=== PATIENT | female | born 1985 | race Caucasian/White ===

== ENCOUNTER 2020-03-21 18:12 | Emergency (ER) | payer SELFPAY ==
--- NOTE | 2020-03-21 20:26 | RAD REPORT ---
EXAM DESCRIPTION: US - Extremity Venous Uni Ltd - 03/21/2020 8:18 pm CLINICAL HISTORY: Left arm pain and swelling COMPARISON: None. TECHNIQUE: Real-time sonographic evaluation of the left upper extremity deep venous systems was perf ormed. FINDINGS: Normal compressibility, flow augmentation, phasic flow and spontaneous flow are identified in the left upper extremity deep venous system. No intraluminal filling defects seen. Internal jugul ar and subclavian veins are normal as well. Superficial venous thrombosis is identified with dilated and thrombosed vein in the mid forearm. Mariel cent tissues are edematous. This is corresponding to an area of soft tissue swelling evident on physi dante exam. IMPRESSION: No DVT in the left upper extremity. Superficial venous thrombosis in the mid left forearm.
--- NOTE | 2020-03-21 20:32 | EDPHYS ---
Physician Documentation [facility] Name: Venice Saldivar Age: 34 yrs Sex: Female : 1985 Arrival Date: 03/21/2020 Time: 18:15 Bed 24 Private MD: ED Physician Dontrell Pradhan HPI: 03/21 20:51 This 34 yrs old Female presents to ER via Ambulatory with complaints of Skin kb Problem. 20:54 The patient or guardian complains of pain, tenderness. The complaints affect the dorsal kb aspect of left forearm. Context: The problem was sustained at home, resulted from unknown cause. Onset: The symptoms/episode began/occurred last week. Treatment prior to arrival includes: no previous treatment. Modifying factors: The symptoms are alleviated by nothing. the symptoms are aggravated by nothing. Associated signs and symptoms: Pertinent positives: erythema, pain, swelling. Severity of symptoms: At their worst the symptoms were moderate, in the emergency department the symptoms are unchanged. The patient has not experienced similar symptoms in the past. The patient has not recently seen a physician. 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 - Social history:: Smoking status: . ROS: 20:53 Constitutional: Negative for fever, chills, and weight loss, Cardiovascular: Negative kb for chest pain, palpitations, and edema, Respiratory: Negative for shortness of breath, cough, wheezing, and pleuritic chest pain, Abdomen/GI: Negative for abdominal pain, nausea, vomiting, diarrhea, and constipation, MS/Extremity: Negative for injury and deformity, Neuro: Negative for headache, weakness, numbness, tingling, and seizure. 20:53 Skin: Positive for erythema, swelling, of the dorsal aspect of left forearm. Exam: 20:51 Constitutional: This is a well developed, well nourished patient who is awake, alert, kb and in no acute distress. Head/Face: Normocephalic, atraumatic. Chest/axilla: Normal chest wall appearance and motion. Nontender with no deformity. No lesions are appreciated. Cardiovascular: Regular rate and rhythm with a normal S1 and S2. No gallops, murmurs, or rubs. Normal PMI, no JVD. No pulse deficits. Respiratory: Lungs have equal breath sounds bilaterally, clear to auscultation and percussion. No rales, rhonchi or wheezes noted. No increased work of breathing, no retractions or nasal flaring. Abdomen/GI: Soft, non-tender, with normal bowel sounds. No distension or tympany. No guarding or rebound. No evidence of tenderness throughout. MS/ Extremity: Pulses equal, no cyanosis. Neurovascular intact. Full, normal range of motion. Neuro: Awake and alert, GCS 15, oriented to person, place, time, and situation. Cranial nerves II-XII grossly intact. Motor strength 5/5 in all extremities. Sensory grossly intact. Cerebellar exam normal. Normal gait. 20:51 Skin: Appearance: normal except for affected area, Color: erythematous, swelling, noted on the dorsal aspect of left forearm, that are mild. Vital Signs: 18:19 BP 122 / 83; Pulse 82; Resp 16; Temp 97.6; Pulse Ox 100% on R/A; Weight 129.27 kg; iw Height 5 ft. 8 in. (172.72 cm); Pain 8/10; 20:20 BP 120 / 77; Pulse 88; Resp 16; Pulse Ox 100% on R/A; sg 18:19 Body Mass Index 43.33 (129.27 kg, 172.72 cm) iw MDM: 18:19 Patient medically screened. kb 19:29 Data reviewed: vital signs, nurses notes. Data interpreted: Pulse oximetry: on room air kb is 100 %. Interpretation: normal. Counseling: I had a detailed discussion with the patient and/or guardian regarding: the historical points, exam findings, and any diagnostic results supporting the discharge/admit diagnosis, radiology results, the need for outpatient follow up, a family practitioner, to return to the emergency department if symptoms worsen or persist or if there are any questions or concerns that arise at home. 03/21 18:19 Order name: Extremity Venous Unilateral Ltd; Complete Time: 20:27 kb Administered Medications: No medications were administered Disposition: 03/22 06:32 Co-signature as Attending Physician, Dontrell Pradhan MD I agree with the assessment and kdr plan of care. Disposition: 03/21/20 20:31 Discharged to Home. Impression: Superficial Venous Thrombosis-mid left forearm. - Condition is Stable. - Medication Reconciliation Form, Thank You Letter, Antibiotic Education, Prescription Opioid Use form. - Follow up: Emergency Department; When: As needed; Reason: Worsening of condition. Follow up: Private Physician; When: 2 - 3 days; Reason: Recheck today's complaints, Continuance of care, Re-evaluation by your physician. - Notes: Hot, moist compresses Signatures: Dispatcher [employer] EDMS Crystal Birmingham, VICENTA-C ABRASIVE GRADER-Derrick Giordano, JENN RN Dontrell Baird MD MD kdr Rabia Jaimes RN RN iw Corrections: (The following items were deleted from the chart) 03/21 20:41 20:31 03/21/2020 20:31 Discharged to Home. Impression: Superficial Venous sg Thrombosis-mid left forearm. Condition is Stable. Forms are Medication Reconciliation Form, Thank You Letter, Antibiotic Education, Prescription Opioid Use. Follow up: Emergency Department; When: As needed; Reason: Worsening of condition. Follow up: Private Physician; When: 2 - 3 days; Reason: Recheck today's complaints, Continuance of care, Re-evaluation by your physician. kb
--- NOTE | 2020-03-21 20:32 | ER ---
Nurse's Notes [facility] Name: Venice Saldivar Age: 34 yrs Sex: Female : 1985 Arrival Date: 03/21/2020 Time: 18:15 Bed 24 Private MD: Diagnosis: Superficial Venous Thrombosis-mid left forearm Presentation: 03/21 18:16 Chief complaint: Patient states: last had a red jacki on her left forearm and iw the pain is getting worse, the redness is intermittent , can feel a knot underneath. Coronavirus screen: At this time, the client does not indicate any symptoms associated with coronavirus-19. Ebola Screen: Patient negative for fever greater than or equal to 101.5 degrees Fahrenheit, and additional compatible Ebola Virus Disease symptoms Patient denies exposure to infectious person. Patient denies travel to an Ebola-affected area in the 21 days before illness onset. No symptoms or risks identified at this time. Initial Sepsis Screen: Does the patient meet any 2 criteria? No. Patient's initial sepsis screen is negative. Does the patient have a suspected source of infection? No. Patient's initial sepsis screen is negative. Risk Assessment: Do you want to hurt yourself or someone else? Patient reports no desire to harm self or others. Onset of symptoms was February 2020. 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 - Social history:: Smoking status: . Screenin:39 Abuse screen: Denies threats or abuse. Denies injuries from another. Nutritional iw screening: No deficits noted. Tuberculosis screening: No symptoms or risk factors identified. Fall Risk None identified. Assessment: 18:20 General: Appears in no apparent distress. comfortable, Behavior is calm, cooperative. iw Pain: Complains of pain in dorsal aspect of left forearm. Neuro: Level of Consciousness is awake, alert, obeys commands, Oriented to person, place, time, situation, Moves all extremities. Full function. Cardiovascular: Capillary refill < 3 seconds in bilateral fingers Patient's skin is warm and dry. Respiratory: Respiratory effort is even, unlabored, Respiratory pattern is regular, symmetrical. GI: No signs and/or symptoms were reported involving the gastrointestinal system. Derm: Skin is intact, is healthy with good turgor. Musculoskeletal: Range of motion: intact in all extremities. Vital Signs: 18:19 BP 122 / 83; Pulse 82; Resp 16; Temp 97.6; Pulse Ox 100% on R/A; Weight 129.27 kg; iw Height 5 ft. 8 in. (172.72 cm); Pain 8/10; 20:20 BP 120 / 77; Pulse 88; Resp 16; Pulse Ox 100% on R/A; sg 18:19 Body Mass Index 43.33 (129.27 kg, 172.72 cm) iw ED Course: 18:15 Patient arrived in ED. rg4 18:15 Crystal Birmingham FNP-C is [facility]. kb 18:15 Dontrell Pradhan MD is Attending Physician. kb 18:18 Triage completed. iw 18:19 Arm band placed on. iw 18:20 Patient has correct armband on for positive identification. Bed in low position. Call sg light in reach. Pulse ox on. NIBP on. 18:39 No provider procedures requiring assistance completed. Patient did not have IV access iw during this emergency room visit. 19:29 Patient taken to ultrasound. via wheelchair. is 20:11 Ultrasound completed. Patient tolerated well. Patient taken to an exam room, Patient is moved back from ultrasound. 20:19 US Extremity Venous Unilateral Ltd In Process Unspecified. EDMS 20:41 Derrick Mcdowell, RN is Primary Nurse. sg Administered Medications: No medications were administered Outcome: 20:31 Discharge ordered by MD. kb 20:40 Discharged to home ambulatory, with friend. sg 20:40 Condition: stable 20:40 Discharge instructions given to patient, Instructed on discharge instructions, follow up and referral plans. safety practices, Demonstrated understanding of instructions, follow-up care. 20:41 Patient left the ED. sg Signatures: Dispatcher [employer] EDIN Crystal Birmingham FNP-C FNP-Ckb Gay, Steven, RN RN sg Rabia Jaimes RN RN iw Raina Morris rg4 Dow, Amelie is
[2020-03-22 11:08] VITALS: BP 122/83; TEMP 97.6; O2SAT 100
== END 2020-03-21 20:41 | disposition home or self-care (01) ==
LOC: ER 18:12
DX: I82.612 Acute embolism and thrombosis of superficial veins of left upper extremity (principal); F31.9 Bipolar disorder, unspecified
CPT/HCPCS: 93971; 99284

== ENCOUNTER → 2023-04-22 | Emergency (ER) | payer SELFPAY ==
[~2023-04-22] MED LIST: KETOROLAC 30 MG/ML INJ ONE
--- NOTE | 2023-04-22 21:21 | RAD REPORT ---
EXAM DESCRIPTION: RAD - Tib Fib Left - 04/22/2023 9:15 pm CLINICAL HISTORY: PAIN COMPARISON: No comparisons FINDINGS: No fracture or dislocation is seen. Focal soft tissue swelling is seen anterior upper leg.
--- NOTE | 2023-04-22 21:22 | RAD REPORT ---
EXAM DESCRIPTION: RAD - Ankle Right 3 View - 04/22/2023 9:14 pm CLINICAL HISTORY: PAIN COMPARISON: No comparisons FINDINGS: Hardware is present in the distal tibia and medial malleolus. No hardware complication. No fracture or dislocation is seen.
--- NOTE | 2023-04-22 21:33 | ER ---
Nurse's Notes [facility] Name: Venice Saldivar Age: 37 yrs Sex: Female : 1985 Arrival Date: 04/22/2023 Time: 20:11 Bed 9 Private MD: Diagnosis: Contusion of left lower leg;Pain in right ankle and joints of right foot Presentation: 04/22 20:40 Chief complaint: Patient states: WAS PLAYING VOLLEY BALL AND FELL ON HER LEFT LEG. jj7 HAVING PAIN FROM UNDER THE KNEE TO THE ANKLE. HAS SCREWS IN RIGHT ANKLE AND IS HAVING SLIGHT PAIN IN HER RIGHT ANKLE WELL. Coronavirus screen: At this time, the client does not indicate any symptoms associated with coronavirus-19. Ebola Screen: No symptoms or risks identified at this time. Initial Sepsis Screen: Does the patient meet any 2 criteria? HR > 90 bpm. Yes No. Patient's initial sepsis screen is negative. Does the patient have a suspected source of infection? No. Patient's initial sepsis screen is negative. Risk Assessment: Do you want to hurt yourself or someone else? Patient reports no desire to harm self or others. Onset of symptoms was April 22, 2023. 20:40 Method Of Arrival: Wheelchair 7 20:40 Acuity: CATRACHITA 4 jj7 Triage Assessment: 20:44 General: Appears in no apparent distress. uncomfortable, Behavior is calm, cooperative, jj7 appropriate for age. Pain: Complains of pain in left leg. Musculoskeletal: Reports pain in left leg. 20:44 Injury Description: FELL ON HER LEG WRONG WHILE PLAYING VOLLEYBALL. 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 - Social history:: Smoking status: Patient reports the use of cigarette tobacco products, smokes one-half pack cigarettes per day, Patient uses alcohol, IN TREATMENT FOR IT. HASN'T HAD ANY FOR [address] drugs, cocaine. Screenin:48 [facility] ED Fall Risk Assessment (Adult) History of falling in the last 3 months, jj7 including since admission Yes- single mechanical fall (1 pt) Confusion or Disorientation No (0 pts) Intoxicated or Sedated Impaired Gait No (0 pts) Mobility Assist Device Used No (0 pt) Altered Elimination No (0 pt) Score/Fall Risk Level 0 - 2 = Low Risk Oriented to surroundings, Maintained a safe environment, Educated pt \T\ family on fall prevention, incl call for assistance when getting out of bed. Abuse screen: Denies threats or abuse. Nutritional screening: No deficits noted. Tuberculosis screening: No symptoms or risk factors identified. Vital Signs: 20:40 BP 146 / 100; Pulse 96; Resp 17; Temp 98; Pulse Ox 99% ; Weight 115.67 kg; Height 5 ft. jj7 8 in. ; Pain 6/10; 22:18 BP 137 / 82; Pulse 78; Resp 18; Pulse Ox 100% ; as6 20:40 Body Mass Index 38.77 (115.67 kg, 172.72 cm) jj7 20:40 Pain Scale: Adult jj7 ED Course: 20:18 Patient arrived in ED. jj6 20:19 Crystal Birmingham FNP-C is PHCP. kb 20:19 Dariusz Rodriguez MD is Attending Physician. kb 20:44 Triage completed. jj7 20:44 Arm band placed on right wrist. jj7 20:48 No provider procedures requiring assistance completed. jj7 21:14 Ankle Right 3 View In Process Unspecified. EDMS 21:15 Tib Fib Left XRAY In Process Unspecified. EDMS 22:01 Bed in low position. Call light in reach. Provided Education on: follow up. as6 22:01 Patient did not have IV access during this emergency room visit. as6 Administered Medications: 22:00 Drug: Ketorolac IM 30 mg IM once Route: IM; Site: right deltoid; as6 22:01 Follow up: Response: No adverse reaction as6 Medication: 22:01 VIS not applicable for this client. as6 Outcome: 21:32 Discharge ordered by . kb 22:01 Discharged to home ambulatory, as6 22:01 Condition: stable 22:01 Discharge instructions given to patient, Instructed on discharge instructions, follow up and referral plans. medication usage, Demonstrated understanding of instructions, follow-up care, medications, Prescriptions given X 1, 22:18 Patient left the ED. as6 Signatures: Dispatcher [employer] EDCrystal Herzog FNP-C FNP-[place] Main jj6 Tavon Jason RN RN as6 Ashutosh Ramirez RN RN jj7
--- NOTE | 2023-04-22 21:33 | EDPHYS ---
Physician Documentation [facility] Name: Venice Saldivar Age: 37 yrs Sex: Female : 1985 Arrival Date: 04/22/2023 Time: 20:11 Bed 9 Private MD: ED Physician Dariusz Rodriguez HPI: 04/22 21:55 This 37 yrs old Female presents to ER via Wheelchair with complaints of Leg Injury, kb Ankle Injury. 21:55 Patient is a 37-year-old female who presents for left leg pain and bruising that began kb after a fall while playing volleyball earlier today. States she started having pain to her right ankle just prior to the fall. States she has a history of repair with hardware to the right ankle so she wanted to make sure that was okay. Patient has been ambulatory.. 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 - Social history:: Smoking status: Patient reports the use of cigarette tobacco products, smokes one-half pack cigarettes per day, Patient uses alcohol, IN TREATMENT FOR IT. HASN'T HAD ANY FOR [address], cocaine. ROS: 21:55 Constitutional: Negative for fever, chills, and weight loss, kb 21:55 MS/extremity: Positive for ecchymosis, pain, of the anterior aspect of right ankle and left erwin, 21:55 All other systems are negative, Exam: 21:55 Constitutional: This is a well developed, well nourished patient who is awake, alert, kb and in no acute distress. Head/Face: Normocephalic, atraumatic. ENT: Moist Mucous membranes Respiratory: Respirations even and unlabored. No increased work of breathing. Talking in full sentences Skin: Warm, dry with normal turgor. Normal color. Neuro: Awake and alert, GCS 15, oriented to person, place, time, and situation. Moves all extremities. Normal gait. 21:55 Musculoskeletal/extremity: Extremities: grossly normal except: noted in the left erwin: contusion, ecchymosis, pain, swelling, tenderness, ROM: intact in all extremities, Circulation is intact in all extremities. Sensation intact. Weight bearing: able to fully bear weight, Vital Signs: 20:40 BP 146 / 100; Pulse 96; Resp 17; Temp 98; Pulse Ox 99% ; Weight 115.67 kg; Height 5 ft. jj7 8 in. ; Pain 6/10; 22:18 BP 137 / 82; Pulse 78; Resp 18; Pulse Ox 100% ; as6 20:40 Body Mass Index 38.77 (115.67 kg, 172.72 cm) [facility] 20:40 Pain Scale: Adult jj7 MDM: 20:19 Patient medically screened. kb 21:58 Differential diagnosis: dislocation, closed fracture, contusion, Sprain, strain. Data kb reviewed: vital signs, nurses notes. Counseling: I had a detailed discussion with the patient and/or guardian regarding the historical points, exam findings, and any diagnostic results supporting the discharge/admit diagnosis, radiology results, the need for outpatient follow up, a orthopedic surgeon, to return to the emergency department if symptoms worsen or persist or if there are any questions or concerns that arise at home. 04/22 20:23 Order name: Tib Fib Left XRAY; Complete Time: 21:23 kb 04/22 21:14 Order name: Ankle Right 3 View; Complete Time: 21:31 EDMS Administered Medications: 22:00 Drug: Ketorolac IM 30 mg IM once Route: IM; Site: right deltoid; as6 22:01 Follow up: Response: No adverse reaction as6 Disposition Summary: 04/22/23 21:32 Discharge Ordered Notes: Location: Home kb Condition: Stable kb Diagnosis - Contusion of left lower leg kb - Pain in right ankle and joints of right foot kb Followup: kb - With: Emergency Department - When: As needed - Reason: Worsening of condition Followup: kb - With: Private Physician - When: 2 - 3 days - Reason: Recheck today's complaints, Continuance of care, Re-evaluation by your physician Discharge Instructions: - Discharge Summary Sheet kb - Musculoskeletal Pain kb - Contusion, [id number] kb Forms: - Work release form kb - Medication Reconciliation Form kb - Thank You Letter kb - Antibiotic Education kb - Prescription Opioid Use kb - Patient Portal Instructions kb - Leadership Thank You Letter chris Prescriptions: - Diclofenac Sodium 75 mg Oral tablet, delayed release (enteric coated) - take 1 tablet ORAL route 2 times per day As needed; 30 tablet; Refills: 0, chris Product Selection Permitted Addendum: 04/24/2023 04:09 Co-signature as Attending Physician, Dariusz Rodriguez MD I agree with the assessment s p4 and plan of care. I reviewed the patient's care provided by the Advanced Practice Provider and agree with the diagnosis and treatment plan. Signatures: Dispatcher [employer] Crystal Castro, DIGITAL STRATEGIST SENIOR MANAGER-C DIGITAL STRATEGIST SENIOR MANAGER-Tavon Mahmood RN RN as6 Ashutosh Ramirez RN RN jj7 Dariusz Rodriguez MD MD sp4 Corrections: (The following items were deleted from the chart) 04/22 20:56 20:23 Ankle Right 3 View+[email or web address] ordered. [facility] JAZMINELA
[2023-04-22 23:32] VITALS: TEMP 98
[2023-04-22 23:45] VITALS: BP 137/82; O2SAT 100
== END ==
LOC: ER 20:11
DX: S80.12XA Contusion of left lower leg, initial encounter (principal); M25.571 Pain in right ankle and joints of right foot
CPT/HCPCS: 96372; 99284